=== PATIENT | female | born 1960 | race Caucasian/White ===

== ENCOUNTER 2020-04-19 09:53 | Outpatient (CLI) | payer OTHER, SELFPAY ==
--- NOTE | 2020-04-19 09:59 | USCV_ITS ---
Cassi Barcenas Age: 59 Gender: F : 1960 Exam Date: 04/19/2020 10:25 Ordering Phys: Kriss Mcfarland Technologist: Jayson Murrell Exam Location: [facility] – [place] Indication: MURMUR BP: 125 / 70 HR: 51 Rhythm: Sinus Technical Quality: Adequate MEASUREMENTS (Male / Female) Normal Values 2D ECHO LV Diastolic Diameter PLAX 3.5 cm 4.2 - 5.9 / 3.9 - 5.3 cm LV Systolic Diameter PLAX 2.2 cm IVS Diastolic Thickness 0.9 cm 0.6 - 1.0 / 0.6 - 0.9 cm IVS Systolic Thickness 1.1 cm LVPW Diastolic Thickness 1.1 cm 0.6 - 1.0 / 0.6 - 0.9 cm LVPW Systolic Thickness 1.4 cm LVOT Diameter 2.0 cm LV Ejection Fraction 2D Teich 69.7 % LV Ejection Fraction MOD 2C 62.3 % LV Ejection Fraction 2C AL 60.6 % LA Diameter 3.7 cm LA Width 4.4 cm LA Height 4.0 cm RA Width 3.3 cm RA Height 4.2 cm M-MODE LV Diastolic Diameter MM 5.0 cm 4.2 - 5.9 / 3.9 - 5.3 cm LV Systolic Diameter MM 2.9 cm LV Ejection Fraction MM Teich 73.4 % IVS Diastolic Thickness MM 0.9 cm 0.6 - 1.0 / 0.6 - 0.9 cm IVS Systolic Thickness MM 1.3 cm LVPW Diastolic Thickness MM 1.0 cm 0.6 - 1.0 / 0.6 - 0.9 cm LVPW Systolic Thickness MM 1.7 cm RV Diastolic Diameter MM 1.5 cm Aortic Annulus Diameter 3.8 cm LA Ao Ratio MM 1.0 MV E Point Septal Separation 0.7 cm DOPPLER AV Peak Velocity 132.0 cm/s LVOT Peak Velocity 126.0 cm/s AV Area Cont Eq vti 2.9 cm squared AV Area Cont Eq pk 3.1 cm squared MV Area PHT 5.0 cm squared Mitral E to A Ratio 1.1 MV E' Velocity 59.5 cm/s Mitral E to MV E' Ratio 8.8 Mitral E to LV E' Lateral Ratio 8.2 Mitral E to LV E' Septal Ratio 9.6 TR Peak Velocity 143.0 cm/s TR Peak Gradient 8.2 mmHg PV Peak Velocity 130.0 cm/s RV Acceleration Time 0.1 s FINDINGS Left Ventricle Normal left ventricular cavity size. Normal left ventricular systolic function. No regional wall motion abnormalities. Left ventricular ejection fraction is estimated at 60 %. Normal diastolic function. Right Ventricle The right ventricle is normal in size and function. RVSP could not be calculated due to incomplete tricuspid regurgitation velocity profile. Right Atrium The right atrium is normal in size. Left Atrium The left atrium is normal in size. Mitral Valve Structurally normal mitral valve without significant stenosis or prolapse. There is no mitral regurgitation. Aortic Valve Structurally normal aortic valve without significant sclerosis or stenosis. There is no aortic regurgitation. Tricuspid Valve Structurally normal tricuspid valve without significant stenosis or regurgitation. Pulmonic Valve Structurally normal pulmonic valve without significant stenosis. There is no pulmonic regurgitation. Pericardium Normal pericardium without effusion. Aorta Normal ascending aorta dimension. CONCLUSIONS 1-Normal left ventricular cavity size. Normal left ventricular systolic function. No regional wall motion abnormalities. Left ventricular ejection fraction is estimated at 60 %. Normal diastolic function. 2-No significant valve abnormalities. There is no pericardial effusion. 3-The right ventricle is normal in size and function. RVSP could not be calculated due to incomplete tricuspid regurgitation velocity profile. 4-Right atrial pressure is around 5 mm of mercury. 5-There are no prior echocardiogram studies to compare. Claribel Amezcua MD (Electronically Signed) Final Date: 22 April 2020 19:13 S
== END 2020-04-19 09:54 | disposition home or self-care (01) ==
LOC: US 09:55
PROVIDERS: PCP Physician Assistant; Visit Provider Physician Assistant
DX: R01.1 Cardiac murmur, unspecified (principal)
CPT/HCPCS: 93306

== ENCOUNTER → 2020-10-14 10:26 | Outpatient (BNVA) | payer MEDICARE, OTHER, SELFPAY | PROVIDERS: PCP Physician Assistant; Referring Provider Physician Assistant; Visit Provider Podiatrist Foot & Ankle Surgery | DX: M79.672 Pain in left foot (principal) | CPT/HCPCS: 73630 ==

== ENCOUNTER 2020-12-20 15:01 | Outpatient (CLI) | payer MEDICARE, OTHER, SELFPAY | END 2020-12-20 15:02 | disposition home or self-care (01) | LOC: SPT 15:02 | PROVIDERS: PCP Physician Assistant; Visit Provider Podiatrist Foot & Ankle Surgery | DX: Z46.89 Encounter for fitting and adjustment of other specified devices (principal); M72.2 Plantar fascial fibromatosis | CPT/HCPCS: 97760; L4397 ==

== ENCOUNTER → 2021-07-17 12:47 | Outpatient (BNVA) | payer MEDICARE, OTHER, SELFPAY | PROVIDERS: PCP Physician Assistant; Visit Provider Internal Medicine Cardiovascular Disease | DX: R00.2 Palpitations (principal); F41.9 Anxiety disorder, unspecified; F90.9 Attention-deficit hyperactivity disorder, unspecified type; Z86.16 Personal history of COVID-19; R03.0 Elevated blood-pressure reading, without diagnosis of hypertension; I44.0 Atrioventricular block, first degree; R00.1 Bradycardia, unspecified; R00.0 Tachycardia, unspecified | CPT/HCPCS: 93246; 99203; 99204 ==

== ENCOUNTER 2021-07-31 08:42 | Outpatient (CLI) | payer MEDICARE, OTHER, SELFPAY ==
--- NOTE | 2021-07-31 09:03 | MM_ITS ---
WS: [id number] SCREENING DIGITAL BREAST TOMOSYNTHESIS MAMMOGRAM WITH CAD HISTORY: SCREENING COMPARISON: 04/13/2011 Bilateral CC and MLO with tomosynthesis views submitted. Synthetic mammography reviewed. Computer aid ed detection analyzed. Breast composition: There are scattered areas of fibroglandular density. No suspicious masses, microc alcifications or architectural distortion. MM/[place] [id number] IMPRESSION: BI-RADS: 1-Negative FOLLOW UP: 1 Year Follow-up
== END 2021-07-31 08:43 | disposition home or self-care (01) ==
PROVIDERS: PCP Physician Assistant; Visit Provider Physician Assistant
DX: Z12.31 Encounter for screening mammogram for malignant neoplasm of breast (principal)
CPT/HCPCS: 77063; 77067

== ENCOUNTER 2022-06-09 17:38 | Emergency (ER) | payer MEDICARE, OTHER, SELFPAY ==
[2022-06-09 18:27] VITALS: BP 175/112; PULSE 81; RESP 19; TEMP 36.9; O2SAT 98; BMI 28.8
[2022-06-09 19:24] LABS: Basophils % 0.4 %; Eosinophils # 0.1 10^3/uL (0.0-0.8); Eosinophils % 1.3 %; Hematocrit 43.8 % (37.0-47.0); Hemoglobin 14.2 g/dL (11.5-15.3); Lymphocytes # 3.1 10^3/uL (0.8-4.8); Lymphocytes % 41.6 %; Mean Corpuscular HGB Conc 32.4 g/dL (30.0-36.0); Mean Corpuscular Hemoglobin 28.1 pg (28.0-34.0); Mean Corpuscular Volume 86.7 fl (81-99); Mean Platelet Volume 9.7 fL (7.4-10.4); Monocytes # 0.4 10^3/uL (0.2-0.9); Monocytes % 5.6 %; Neutrophils # 3.84 10^3/uL (1.8-7.7); Nucleated Red Blood Cells % 0 %; Platelet Count 258 10^3/cmm (130-400); Red Blood Count 5.05 10^6/uL (4.1-5.3); Red Cell Distribution Width 13.7 % (12.1-15.1); White Blood Count 7.5 10^3/uL (4.0-10.0)
[2022-06-09 19:33] LABS: Add Urine Microscopic? NO; Charge for UA Resulting for Rev
[2022-06-09 19:37] LABS: Bilirubin Urine Neg (Negative); Blood Urine Neg (Negative); Glucose Urine UA Norm (Normal); Ketones Urine Negative (Negative); Leukocyte Esterase Urine Negative (Negative); Nitrate Urine Negative (Negative); Protein Urine Neg (Negative); Specific Gravity, Urine 1.005 (1.005-1.030); Urine Appearance Clear (CLEAR); Urine Color Light yellow (Yellow); Urobilinogen Urine Norm (Negative); pH Urine 6 (5-7)
[2022-06-09 19:51] LABS: Alanine Aminotransferase 12 U/L (0-33); Albumin Level 4.3 g/dL (3.5-5.2); Alkaline Phosphatase 111 U/L (35-105); Anion Gap 15.1 (5-19); Aspartate Amino Transferase 19 U/L (0-32); Blood Urea Nitrogen 15 mg/dL (8-23); Calcium 9.1 mg/dL (8.5-10.5); Carbon Dioxide 24 mmol/L (22-29); Chloride 106 mmol/L (98-107); Globulin 2.9 g/dL (1.3-4.6); Glomerular Filtration Rate 73.2 mL/min (90-130); Glucose 98 mg/dL (65-115); Lipase 16 U/L (13-60); Osmolality Calculated 293 mOsm/kg (285-295); Potassium 4.1 mmol/L (3.5-5.1); Sodium 141 mmol/L (136-145); Total Bilirubin 0.3 mg/dL (0.15-1.2); Total Protein 7.2 g/dL (6.6-8.7)
[2022-06-09 20:22] VITALS: BP 169/106; PULSE 73; TEMP 36.9; O2SAT 98
--- NOTE | 2022-06-09 20:44 | CTR_ITS ---
PROCEDURE INFORMATION: Exam: CT Abdomen And Pelvis Without Contrast Exam date and time: 06/09/2022 8:51 PM Age: 61 years old Clinical indication: Abnormal findings; Abnormal lab test; Other: Unknown, sent by pcp. No labs currenly in the er; Prior surgery; Surgery date: 6+ months; Surgery type: Gb, gastric bypass, appy, hysto; Additional info: Falnk pain TECHNIQUE: Imaging protocol: Computed tomography of the abdomen and pelvis without contrast. Radiation optimization: All CT scans at this facility use at least one of these dose optimization techniques: automated exposure control; mA and/or kV adjustment per patient size (includes targeted exams where dose is matched to clinical indication); or iterative reconstruction. REPORTING DATA: Count of CT and Cardiac NM exams in prior 12 months: This patient has received 0 known CTs and 0 known cardiac nuclear medicine studies in the 12 months prior to the current study. COMPARISON: No relevant prior studies available. RADIATION DOSE METRICS: Total DLP (mGy-cm): 912.23 FINDINGS: Lungs: Lung bases are clear. Liver: Normal. No mass. Gallbladder and bile ducts: Gallbladder has been removed. There is mild associated dilatation of the common bile duct. Pancreas: Unremarkable. Main pancreatic duct is not significantly dilated. Spleen: Normal. No splenomegaly. Adrenal glands: Normal. No mass. Kidneys and ureters: There are 2 small calcifications that cannot be discerned separately from the midportion of the right ureter largest of which measures 4 mm suspicious for nonobstructing right mid ureteral stones. Kidneys are otherwise unremarkable. Stomach and bowel: Evidence of previous gastric bypass procedure which is unremarkable in appearance. Scattered diverticuli large bowel without evidence of diverticulitis. Appendix: No evidence of appendicitis. Intraperitoneal space: Unremarkable. No free air. No significant fluid collection. Vasculature: Unremarkable. No abdominal aortic aneurysm. Lymph nodes: Unremarkable. No enlarged lymph nodes. Urinary bladder: Unremarkable as visualized. Reproductive: Uterus has been removed. Bones/joints: Mild-moderate degenerative changes lower lumbar spine. No acute bony abnormalities evident. Soft tissues: Unremarkable. CT/CT kidney stone [id number] IMPRESSION: 1. Findings suspicious for 2 nonobstructing right mid ureteral stones which could be confirmed on CT urography if clinically warranted. 2. Additional nonemergent findings as above.
[2022-06-09 21:30] VITALS: BP 154/102; PULSE 62; RESP 16; O2SAT 94
[2022-06-09] MEDS: sodium chloride 0.9% 1,000 ML 999 ML IV (21:43)
[2022-06-09] MEDS: ondansetron 2 mg/ML SDV 2 mL 4 MG IVP ×2 (21:44→22:39)
[2022-06-09 21:46] VITALS: RESP 18; O2SAT 97
[2022-06-09] MEDS: HYDROmorphone 1 mg/mL INJ 1 mL IVP (21:46)
--- NOTE | 2022-06-09 22:01 | W.ED.RECABL ---
HPI - Recheck/Abnormal Lab/Rx General: Chief Complaint: Recheck/Abnormal Lab/Rx Stated Complaint: [facility] sent for abn scans, kidney pain Time Seen by Provider: 06/09/22 20:50 Source: patient Mode of arrival: ambulatory Limitations: no limitations History of Present Illness: 61-year-old female states she been having some right-sided flank pain over the last 3 days states it radiates into her right groin she had an x-ray today that showed some possible calcifications. States pain is currently 7 out of 10 she denies any dysuria denies any nausea vomiting she denies any worsening improving factors. Review of Systems Const: Denies: fever(s), chills, body aches or change in appetite Eyes: Denies: blurry vision or eye discomfort ENMT: Denies: throat pain or dental pain Card: Denies: chest pain Resp: Denies: dyspnea GI: Denies: abdominal pain, nausea, vomiting or diarrhea : Reports: flank pain Musc: Denies: neck pain or back pain Skin/Breast: Denies: rash Neuro: Denies: headache(s) Psych: Denies: depression Jeromy/Lymph: Denies: easy bruising All/Imm: Denies: urticaria PFSH ED PFSH: Medical History ADHD Anxiety History of bipolar disorder History of COVID-19 History of gallstones History of schizophrenia Insomnia Posttraumatic stress disorder Psychiatric care Surgical History S/P appendectomy S/P section S/P gastric bypass S/P hysterectomy Family History Mother Myocardial infarct Stroke Diabetes Father Myocardial infarct Diabetes Brother Murmur, cardiac Sister Murmur, cardiac Social History Smoking and tobacco status: current every day smoker (1/2 pack ) cigarettes Packs smoked per day: 0.5 Years cigarettes smoked: 45 Physical Exam Const: COMMON NORMALS: no acute distress, patient oriented x3 and healthy appearing HENMT: COMMON NORMALS: normocephalic and atraumatic HEAD & SCALP: normocephalic and atraumatic Eye: COMMON NORMALS: Equal, round and reactive pupils present and EOMs intact bilaterally PUPIL: Yes Equal, round and reactive pupils present Neck/C-Spine: COMMON NORMALS: full ROM and supple Chest: COMMONS NORMALS: normal inspection of the chest and normal palpation of entire chest wall Resp: COMMON NORMALS: normal respiratory effort, No retractions, No use of accessory muscles and clear to auscultation bilaterally AUSCULTATION: clear to auscultation bilaterally Cardio: COMMON NORMALS: regular rate, regular rhythm and No murmurs present (Cardio) RATE: regular rate RHYTHM: regular rhythm GI: COMMON NORMALS: Normal to inspection, nondistended, normoactive bowel sounds present, Soft to palpation, non-tender and no masses PALPATION: Yes Soft to palpation Extremity: COMMON NORMALS: normal to inspection and full ROM Neuro: COMMON NORMALS: patient oriented x3, moves all extremities and no focal motor deficits Psych: COMMON NORMALS: mental status grossly normal, Normal thought process present and cooperative THOUGHT PROCESS: Normal thought process present Skin: COMMON NORMALS: no rashes or lesions noted and no wounds GENERAL SKIN EXAM: no rashes or lesions noted Course Vital Signs: Vital signs: Vital Signs Temperature 98.4 F 06/09/22 20:22 Pulse Rate 62 06/09/22 21:30 Respiratory Rate 18 06/09/22 21:46 Blood Pressure 154/102 06/09/22 21:30 Pulse Oximetry 97 06/09/22 21:46 Oxygen Delivery Me thod 06/09/22 21:30 MDM - Recheck/Abnormal Lab/Rx Medical Decision Making Patient presents with right flank pain CT shows small kidney stone her pain is resolved here no signs of infection she is stable for discharge she has a follow-up with urologist in [place] we will discharge her with pain meds and a strainer she is return if worsening. Lab Data 06/09/22 19:13 06/09/22 19:13 Radiology Impressions Abdomen/Pelvis CT 06/09/22 20:44 IMPRESSION: 1. Findings suspicious for 2 nonobstructing right mid ureteral stones which could be confirmed on CT urography if clinically warranted. 2. Additional nonemergent findings as above. Laboratory Results WBC 7.5 10^3/uL (4.0-10.0) 06/09/22 19:13 RBC 5.05 10^6/uL (4.1-5.3) 06/09/22 19:13 Hgb 14.2 g/dL (11.5-15.3) 06/09/22 19:13 Hct 43.8 % (37.0-47.0) 06/09/22 19:13 MCV 86.7 fl (81-99) 06/09/22 19:13 MCH 28.1 pg (28.0-34.0) 06/09/22 19:13 MCHC 32.4 g/dL (30.0-36.0) 06/09/22 19:13 RDW 13.7 % (12.1-15.1) 06/09/22 19:13 Plt Count 258 10^3/cmm (130-400) 06/09/22 19:13 MPV 9.7 fL (7.4-10.4) 06/09/22 19:13 Neut % (Auto) 51.0 % 06/09/22 19:13 Lymph % (Auto) 41.6 % 06/09/22 19:13 Kimble % (Auto) 5.6 % 06/09/22 19:13 Eos % (Auto) 1.3 % 06/09/22 19:13 Baso % (Auto) 0.4 % 06/09/22 19:13 Neut # (Auto) 3.84 10^3/uL (1.8-7.7) 06/09/22 19:13 Lymph # (Auto) 3.1 10^3/uL (0.8-4.8) 06/09/22 19:13 Kimble # (Auto) 0.4 10^3/uL (0.2-0.9) 06/09/22 19:13 Eos # (Auto) 0.1 10^3/uL (0.0-0.8) 06/09/22 19:13 Baso # (Auto) 0.0 10^3/uL (0.0-0.1) 06/09/22 19:13 Nucleated RBC % (auto) 0 % 06/09/22 19:13 Nucleated RBCs # 0.0 /100WBC 06/09/22 19:13 Sodium 141 mmol/L (136-145) 06/09/22 19:13 Potassium 4.1 mmol/L (3.5-5.1) 06/09/22 19:13 Chloride 106 mmol/L (98-107) 06/09/22 19:13 Carbon Dioxide 24 mmol/L (22-29) 06/09/22 19:13 Anion Gap 15.1 (5-19) 06/09/22 19:13 BUN 15 mg/dL (8-23) 06/09/22 19:13 Creatinine 0.8 mg/dL (0.5-0.9) 06/09/22 19:13 GFR Calculation 73.2 mL/min (90-130) L 06/09/22 19:13 Glucose 98 mg/dL (65-115) 06/09/22 19:13 Calculated Osmolality 293 mOsm/kg (285-295) 06/09/22 19:13 Calcium 9.1 mg/dL (8.5-10.5) 06/09/22 19:13 Total Bilirubin 0.3 mg/dL (0.15-1.2) 06/09/22 19:13 AST 19 U/L (0-32) 06/09/22 19:13 ALT 12 U/L (0-33) 06/09/22 19:13 Alkaline Phosphatase 111 U/L (35-105) H 06/09/22 19:13 Total Protein 7.2 g/dL (6.6-8.7) 06/09/22 19:13 Albumin 4.3 g/dL (3.5-5.2) 06/09/22 19:13 Globulin 2.9 g/dL (1.3-4.6) 06/09/22 19:13 Lipase 16 U/L (13-60) 06/09/22 19:13 Urine Color Light yellow (Yellow) 06/09/22 18:00 Urine Appearance Clear (CLEAR) 06/09/22 18:00 Urine pH 6 (5-7) 06/09/22 18:00 Ur Specific [place] 1.005 (1.005-1.030) 06/09/22 18:00 Urine Protein Neg (Negative) 06/09/22 18:00 Urine Glucose (UA) Norm (Normal) 06/09/22 18:00 Urine Ketones Negative (Negative) 06/09/22 18:00 Urine Blood Neg (Negative) 06/09/22 18:00 Urine Nitrate Negative (Negative) 06/09/22 18:00 Urine Bilirubin Neg (Negative) 06/09/22 18:00 Urine Urobilinogen Norm mg/dL (Negative) 06/09/22 18:00 Ur Leukocyte Esterase Negative (Negative) 06/09/22 18:00 Discharge Plan Discharge Patient Disposition: Home Clinical Impression: Kidney stone Condition: Stable Prescriptions: New hydrocodone-acetaminophen 5-325 mg tablet 1 tab PO Q6H PRN (Reason: pain) Qty: 14 0RF ondansetron 4 mg tablet,disintegrating 4 mg PO Q6H PRN (Reason: nausea and vomiting) Qty: 14 0RF No Action eszopiclone [Lunesta] 3 mg tablet 3 mg PO .qhs 30 Days Qty: 30 3RF sertraline 100 mg tablet 200 mg PO DAILY Qty: 60 3RF Discharge Orders: Discharge ED (Routine); Ordered 06/09/22 Ordered By: Kevyn Moore Referrals: Kriss Mcfarland PA-C [Primary Care Provider] - Discharge Diet: Advance as tolerated Discharge Activity: Resume usual activity Patient Instructions: Kidney Stones (ED) Coding Level of Care Code ED [facility] for Rosalva Mahmood
--- NOTE | 2022-06-09 22:35 | PC.NURSE ---
FLANAGAN x 1 tab sent home with patient per provider. Witnessed by Mago MEEKS.
[2022-06-09] MEDS: lidocaine 2% viscous 15 ML, aluminum-mag hydrox-simethicon 30 ML, sucralfate oral liq 1 GM PO (22:39)
[2022-06-09 22:41] VITALS: BP 214/99; PULSE 62; RESP 18; O2SAT 100
== END 2022-06-09 22:46 | disposition home or self-care (01) ==
PROVIDERS: Emergency Provider Emergency Medicine; PCP Physician Assistant
DX: N20.0 Calculus of kidney (principal); F17.210 Nicotine dependence, cigarettes, uncomplicated
CPT/HCPCS: 36415; 74176; 80053; 81003; 83690; 85025; 96361; 96374; 96375; 96376; 99285; J1170; J2405; J7030

== ENCOUNTER → 2024-11-07 15:28 | Outpatient (BNVA) | payer OTHER, MEDICARE, SELFPAY | PROVIDERS: PCP Family Medicine; Visit Provider Family Medicine | DX: E03.9 Hypothyroidism, unspecified (principal); Z13.1 Encounter for screening for diabetes mellitus; Z13.220 Encounter for screening for lipoid disorders; Z13.6 Encounter for screening for cardiovascular disorders; Z98.890 Other specified postprocedural states; Z90.89 Acquired absence of other organs; Z90.49 Acquired absence of other specified parts of digestive tract; R25.2 Cramp and spasm | CPT/HCPCS: 80053; 80061; 83540; 83735; 84439; 84443; 84481; 85025; 85651; 86038; 86140 ==

== ENCOUNTER → 2025-01-23 09:37 | Outpatient (BNVA) | payer OTHER, MEDICARE, SELFPAY | PROVIDERS: PCP Family Medicine; Visit Provider Family Medicine | DX: E03.9 Hypothyroidism, unspecified (principal) | CPT/HCPCS: 84439; 84443; 84481 ==